=== PATIENT | female | born 1975 | race Hispanic/Latino ===

== ENCOUNTER 2022-05-11 08:14 | Emergency (ER) | payer OTHER ==
[~2022-05-11] VITALS: Ht 154.9 cm; Wt 89.5 kg
[~2022-05-11 08:14] MED LIST: Z RISPERDAL PO; Z.0.BENADRYL25 MG PO; Z.0.DEPAKOTE250 MG PO; Z.0.GLUCOPHAGE500 MG PO; Z.0.PRAVASTATIN SOD2 PO; [UNRECOGNIZED DRUG - REMARK]
[2022-05-11] MEDS ORDERED: ALBUTEROL/IPRATROPIUM 3 ML NEB NEB ONE (11:15)
[2022-05-11] MEDS ORDERED: ALBUTEROL/IPRATROPIUM 3 ML NEB ONE (12:08)
[2022-05-11] MEDS ORDERED: PROMETHAZINE-C473 ML PO (12:51)
[2022-05-11] MEDS ORDERED: PROVENTIL HFA6.7 GM INH (12:53)
[2022-05-11 13:04] VITALS: BP 157/85
== END 2022-05-11 13:06 | disposition home or self-care (01) ==
LOC: FSED 08:18
DX: R05.9 Cough, unspecified (principal); J06.9 Acute upper respiratory infection, unspecified; J98.01 Acute bronchospasm; M79.602 Pain in left arm; M79.601 Pain in right arm; E11.65 Type 2 diabetes mellitus with hyperglycemia; I10 Essential (primary) hypertension; E78.5 Hyperlipidemia, unspecified; F31.9 Bipolar disorder, unspecified
CPT/HCPCS: 71046; 80053; 81003; 82553; 83518; 84484; 85025; 87400; 93005; 99283

== ENCOUNTER 2025-04-30 13:02 | Emergency (ER) | payer MEDICAID ==
[~2025-04-30] VITALS: Ht 154.9 cm; Wt 87.3 kg
[2025-04-30 13:02] VITALS: TEMP 97.7
[~2025-04-30 13:02] MED LIST changes: +AZITHROMYCIN250 MG PO; +ONDANSETRON ODT4 MG PO; +PANTOPRAZOLE SO40 MG PO; +PREDNISONE20 MG PO; +PROMETHAZINE-C473 ML PO; +PROVENTIL HFA6.7 GM INH; +VENTOLIN HFA18 GM INH
[2025-04-30] MEDS: ONDANSETRON HCL INJ 2MG/ML 2ML 2 MG/ML VIAL IV STA (13:50)
[2025-04-30] MEDS: SODIUM CHLORIDE 0.9% 1000ML 1,000 ML IV ONE (13:50)
[2025-04-30 16:44] VITALS: PULSE 98; RESP 20; O2SAT 98
== END 2025-04-30 16:48 | disposition home or self-care (01) ==
LOC: FSED 13:24
DX: R06.02 Shortness of breath (principal); R07.89 Other chest pain; R11.0 Nausea; R42 Dizziness and giddiness; I12.9 Hypertensive chronic kidney disease with stage 1 through stage 4 chronic kidney disease, or unspecified chronic kidney disease; E11.22 Type 2 diabetes mellitus with diabetic chronic kidney disease; N18.9 Chronic kidney disease, unspecified; E11.40 Type 2 diabetes mellitus with diabetic neuropathy, unspecified; E78.5 Hyperlipidemia, unspecified; I25.10 Atherosclerotic heart disease of native coronary artery without angina pectoris; F41.9 Anxiety disorder, unspecified; F32.A Depression, unspecified
CPT/HCPCS: 71046; 80048; 80076; 84484; 85025; 85379; 96374; 99284; J2405; J7030